=== PATIENT | male | born 1990 | race Caucasian/White ===

== ENCOUNTER 2020-07-18 08:57 | Emergency (ER) | payer OTHER ==
--- NOTE | 2020-07-18 09:21 | ER Document Report ---
ED Fall - General Chief Complaint: Foot Injury Stated Complaint: FALL/LEFT LEG,ANKLE,FOOT PAIN Time Seen by Provider: 07/18/20 09:21 Primary Care Provider: CHAITANYA MONTIEL MD [NO LOCAL MD] - Follow up in 3-5 days (for orthopedic follow up) - [facility] Notes: 30-year-old male to the emergency department with complaints of left foot, ankle, calf pain that began today after he fell off of a ladder. He states that the ladder was slipping alongside the building that he was next to and he fell off of it. He thinks he fell approximately 15 feet. He states he landed directly on the heel of his foot and the pain radiated up into his calf. He states that he has not been able to bear weight on the foot since the injury. He denies hitting his head. He denies any loss of consciousness. Denies any back pain, chest pain, abdominal pain. - Related data Allergies/Adverse Reactions: amoxicillin [From Augmentin] Allergy (Verified 07/18/20 09:11) clavulanic acid [From Augmentin] Allergy (Verified 07/18/20 09:11) Home Medications: meloxicam Past Medical History - General Information source: Patient - Social History Smoking Status: Never Smoker Chew tobacco use (# tins/day): Yes Frequency of alcohol use: Occasional Drug Abuse: None Family History: Reviewed & Not Pertinent Patient has homicidal ideation: No Past Surgical History: Reports: Hx Orthopedic Surgery - right foot x 2. Review of Systems - Review of Systems Constitutional: denies: Chills, Fever EENT: No symptoms reported Cardiovascular: denies: Chest pain, Palpitations, Syncope, Dizziness, [place] ed Respiratory: denies: Cough, Short of breath Gastrointestinal: denies: Abdominal pain, Diarrhea, Nausea, Vomiting Musculoskeletal: Joint pain - Foot, ankle, calf pain on the left side Skin: No symptoms reported Hematologic/Lymphatic: No symptoms reported Neurological/Psychological: No symptoms reported -: Yes All other systems reviewed and negative Physical Exam - Vital signs Vitals: Temp Pulse Resp BP Pulse Ox 98.5 F 106 H 20 164/94 H 97 07/18/20 09:04 07/18/20 09:04 07/18/20 09:04 07/18/20 09:04 07/18/20 09:04 Interpretation: Normal - General General appearance: Appears well, Alert Notes: Mild pain distress - HEENT Head: Normocephalic, Atraumatic Eyes: Normal Pupils: PERRL - Respiratory Respiratory status: No respiratory distress Chest status: Nontender Breath sounds: Normal. No: Rales, Rhonchi, Wheezing Chest palpation: Normal - Cardiovascular Rhythm: Regular Heart sounds: Normal auscultation Murmur: No - Abdominal Inspection: Normal Distension: No distension Bowel sounds: Normal Tenderness: Nontender. No: Tender, McBurney's point, Hyatt's sign, Guarding Organomegaly: No organomegaly - Extremities Foot: Tender - There is tenderness to palpation over the midfoot and heel of the left foot. There is also tenderness to palpation to the posterior aspect of the heel coming into the calf. The Achilles tendon does not appear to be ruptured. There is also tenderness to palpation to the lateral and medial malleoli with mild edema. 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 No: Pronator drift Sensory: Normal - Psychological Associated symptoms: Normal affect, Normal mood - Skin Skin Temperature: Warm Skin Moisture: Dry Skin Color: Normal Course - Re-evaluation Re-evalutation: 07/18/20 10:40 Patient with negative x-rays of the foot and tib-fib. Still concern for possible occult fracture given the height in which the patient fell and the fact that he cannot weight-bear. Will send for CT. Reviewed plain films with patient and he agrees with the plan. Noted CT reading for anterior tibial malleoli fracture with talus fracture. These are mildly displaced. Plan to place in splint and on crutches. We will have him follow-up with pedis without fail. Patient agrees with the plan. He is to be nonweightbearing. - Vital Signs Vital signs: Temp Pulse Resp BP Pulse Ox 98.3 F 77 18 155/91 H 98 07/18/20 12:56 07/18/20 12:56 07/18/20 12:56 07/18/20 12:56 07/18/20 12:56 - Laboratory Laboratory results interpreted by me: Foot X-Ray 07/18/20 09:27 IMPRESSION: NO RADIOGRAPHIC EVIDENCE OF ACUTE INJURY. Lumbar Spine X-Ray 07/18/20 09:27 IMPRESSION: NORMAL 5 VIEW LUMBAR SPINE. Tibia/Fibula X-Ray 07/18/20 09:27 IMPRESSION: NEGATIVE STUDY OF THE LEFT TIBIA AND FIBULA. NO RADIOGRAPHIC EVIDENCE OF ACUTE INJURY. Lower Extremity CT 07/18/20 10:32 IMPRESSION: Fractures of the anterior malleolus and talus. - Diagnostic Test Radiology reviewed: Image reviewed, Reports reviewed Procedures - Immobilization Left Ankle Pre-Proc Neuro Vasc Exam: Normal Immobilizer type: Other - posterior leg and sugar tong Performed by: PCT Post-Proc Neuro Vasc Exam: Normal, Unchanged from pre-exam Alignment checked and good: Yes Discharge - Discharge Clinical Impression: Fall Qualifiers: Encounter type: initial encounter Qualified Code(s): W19.XXXA - Unspecified fall, initial encounter Talus fracture Qualifiers: Encounter type: initial encounter Fracture type: closed Talus location: unspecified portion of talus Fracture alignment: displaced Laterality: left Qualified Code(s): S92.102A - Unspecified fracture of left talus, initial encounter for closed fracture Malleolar fracture Qualifiers: Encounter type: initial encounter Fracture type: closed Laterality: left Qualified Code(s): S82.892A - Other fracture of left lower leg, initial encounter for closed fracture Condition: Stable Disposition: HOME, SELF-CARE Instructions: Fracture ([facility]) Additional Instructions: Keep ankle splinted without fail until you see orthopedist. No weightbearing. Use crutches. Take medicines as prescribed. Keep the ankle elevated. No work until cleared by orthopedist. Return if worsening symptoms such as increasing pain, fever, or any other concerns. Prescriptions: Ibuprofen [Motrin 800 mg Tablet] 800 mg PO Q8H PRN #30 tab PRN Reason: Oxycodone HCl/Acetaminophen [Percocet 5-325 mg Tablet] 1 tab PO Q6H PRN #15 tablet PRN Reason: Forms: Return to Work Referrals: CHAITANYA MONTIEL MD [NO LOCAL MD] - Follow up in 3-5 days (for orthopedic follow up)
[2020-07-18] MEDS ORDERED: MORPHINE SULFATE 10 MG/ML INJ IM ONE (09:28)
--- NOTE | 2020-07-18 10:24 | RADIOLOGY REPORT (SQ) ---
EXAM DESCRIPTION: FOOT LEFT COMPLETE IMAGES COMPLETED DATE/TIME: 07/18/2020 10:03 am REASON FOR STUDY: fall for 15 feet, heel, leg pain, back COMPARISON: None. NUMBER OF VIEWS: Three views. TECHNIQUE: AP, lateral and oblique radiographic images acquired of the left foot. LIMITATIONS: None. FINDINGS: MINERALIZATION: Normal. BONES: No acute fracture or dislocation. No worrisome bone lesions. JOINTS: Intact. Tiny loose body anterior ankle joint. SOFT TISSUES: No soft tissue swelling. No foreign body. OTHER: No other significant finding. IMPRESSION: NO RADIOGRAPHIC EVIDENCE OF ACUTE INJURY. TECHNICAL DOCUMENTATION: JOB ID: [id number] 2010 [employer]- All Rights Reserved Reading location - IP/workstation name: [email or web address]
--- NOTE | 2020-07-18 10:25 | RADIOLOGY REPORT (SQ) ---
EXAM DESCRIPTION: TIBIA FIBULA LEFT IMAGES COMPLETED DATE/TIME: 07/18/2020 10:03 am REASON FOR STUDY: fall for 15 feet, heel, leg pain, back COMPARISON: None. NUMBER OF VIEWS: Two views. TECHNIQUE: Two radiographic images acquired of the left tibia and fibula to include the knee and ank le in at least one projection. LIMITATIONS: None. FINDINGS: MINERALIZATION: Normal. BONES: No acute fracture or dislocation. No worrisome bone lesions. SOFT TISSUES: No obvious swelling or foreign body. OTHER: No other significant finding. IMPRESSION: NEGATIVE STUDY OF THE LEFT TIBIA AND FIBULA. NO RADIOGRAPHIC EVIDENCE OF ACUTE INJURY. TECHNICAL DOCUMENTATION: JOB ID: [id number] 2010 [employer]- All Rights Reserved Reading location - IP/workstation name: [email or web address]
--- NOTE | 2020-07-18 10:25 | RADIOLOGY REPORT (SQ) ---
EXAM DESCRIPTION: L SPINE WHOLE IMAGES COMPLETED DATE/TIME: 07/18/2020 10:03 am REASON FOR STUDY: fall for 15 feet, heel, leg pain, back COMPARISON: None. NUMBER OF VIEWS: Five views including obliques. TECHNIQUE: AP, lateral, oblique, and sacral radiographic images acquired of the lumbar spine. LIMITATIONS: None. FINDINGS: MINERALIZATION: Normal. SEGMENTATION: Normal. No transitional anatomy. ALIGNMENT: Normal. VERTEBRAE: Maintained height. No fracture or worrisome bone lesion. DISCS: Preserved height. No significant osteophytes or end plate irregularity. POSTERIOR ELEMENTS: Pedicles and facets are intact. No pars defect or posterior arch defects. HARDWARE: None in the spine. PARASPINAL SOFT TISSUES: Normal. PELVIS: Intact as visualized. No fractures or worrisome bone lesions. SI joints intact. OTHER: No other significant finding. IMPRESSION: NORMAL 5 VIEW LUMBAR SPINE. TECHNICAL DOCUMENTATION: JOB ID: [id number] 2010 [employer]- All Rights Reserved Reading location - IP/workstation name: [email or web address]
[2020-07-18] MEDS ORDERED: OXYCODONE-ACETAMINOPHEN 5-325 MG TABLET PO ONE (10:36)
--- NOTE | 2020-07-18 12:11 | RADIOLOGY REPORT (SQ) ---
EXAM DESCRIPTION: CT LT LOWER EXTREMITY WITHOUT IMAGES COMPLETED DATE/TIME: 07/18/2020 11:50 am REASON FOR STUDY: unable to bear weight on left foot, 15 foot fall COMPARISON: None. TECHNIQUE: Axial imaging performed through the Left ankle and foot with reformatted coronal and sagittal imaging windowed for bone and soft tissues. Images saved to PAC S. 3D IMAGING: Were 3D images as MIP, SSD, or volume rendering performed at the work station? No LIMITATIONS: None. FINDINGS: SOFT TISSUES: No foreign body. BONY STRUCTURES: Minimally displaced fractures of the anterior malleolus and posterior lateral talus. MINERALIZATION: Normal. OTHER: No other significant finding. IMPRESSION: Fractures of the anterior malleolus and talus. Reading location - IP/workstation name: [email or web address]
[2020-07-18] MEDS ORDERED: IBUPROFEN 800 MG TABLET PO ONE (12:23)
[2020-07-18 13:01] VITALS: BP 155/91
== END 2020-07-18 12:56 | disposition home or self-care (01) ==
LOC: ER 08:57
DX: S82.52XA Displaced fracture of medial malleolus of left tibia, initial encounter for closed fracture (principal); S92.102A Unspecified fracture of left talus, initial encounter for closed fracture; W11.XXXA Fall on and from ladder, initial encounter; Z79.1 Long term (current) use of non-steroidal anti-inflammatories (NSAID); Z88.0 Allergy status to penicillin
CPT/HCPCS: 72110; 99284